=== PATIENT | male | born 1950 | race Caucasian/White ===

== ENCOUNTER 2021-04-25 07:48 | Day surgery (SDC) | payer OTHER, SELFPAY ==
[2021-02-21 15:05] VITALS: BMI 36.4
--- NOTE | 2021-02-24 10:29 | MHC.SHP ---
Pre-Procedural Eval Section A Date of Service: 02/24/21 The patient is an INPATIENT: No Changes since office visit: No Cold of Flu in the past 2 weeks, No New Medical Problems, No Changes in Medication and No Patient answered all questions The History & Physical has been completed within 30 days and I have reviewed it.: Yes Section B Chief Complaint: cataract Allergies: Allergies Allergy/AdvReac Type Severity Reaction Status Date / Time latex Allergy Intermediate Rash Verified 02/21/21 15:01 Plan Diagnosis/Plan: Unchanged I have reviewed the history and physical and performed a pertinent physical examination on my patient. No changes have occurred unless specified.
--- NOTE | 2021-03-17 08:43 | MHC.SHP ---
Pre-Procedural Eval Section A Date of Service: 03/17/21 The patient is an INPATIENT: No Changes since office visit: Yes New Medical Problems; No Cold of Flu in the past 2 weeks, No Changes in Medication and No Patient answered all questions Section B Chief Complaint: cataract Allergies: Allergies Allergy/AdvReac Type Severity Reaction Status Date / Time latex Allergy Intermediate Rash Verified 02/21/21 15:01 Plan I have reviewed the history and physical and performed a pertinent physical examination on my patient. No changes have occurred unless specified.
--- NOTE | 2021-03-17 08:44 | MHC.SHP ---
Pre-Procedural Eval Section A Date of Service: 03/17/21 The patient is an INPATIENT: No Changes since office visit: No Cold of Flu in the past 2 weeks, No New Medical Problems, No Changes in Medication and No Patient answered all questions The History & Physical has been completed within 30 days and I have reviewed it.: Yes Section B Chief Complaint: cataract Allergies: Allergies Allergy/AdvReac Type Severity Reaction Status Date / Time latex Allergy Intermediate Rash Verified 02/21/21 15:01 Plan Diagnosis/Plan: Unchanged I have reviewed the history and physical and performed a pertinent physical examination on my patient. No changes have occurred unless specified.
--- NOTE | 2021-03-18 11:05 | HO.ANESPROP2 ---
HPI - Anesthesia Eval Consult details Narrative: 70yo M for Right Cataract Extraction IOL Insertion No previous cataract on record PCP cleared [facility], [facility] Past Medical History Medical History (Updated 03/18/21 @ 11:06 by Abiola Pugh NP) Arthritis Chronic renal insufficiency Cirrhosis COVID-19 vaccine series completed Elevated cholesterol GERD (gastroesophageal reflux disease) Gout HTN (hypertension) Sleep apnea Subclinical hypothyroidism TIA (transient ischemic attack) Surgical History Surgical History (Updated 02/21/21 @ 15:01 by Carol Ryder RN) H/O colonoscopy History of esophagogastroduodenoscopy (EGD) History of left cataract surgery Status post epidural steroid injection Social History Social History Are you a primary care coordination manager to a significant other at home: No Do you presently have visiting nurse or other home services: Yes ([employer]) Patient Tobacco Use Status: Former Tobacco user Quit Date: age 24 Tobacco use type: Cigarette Use of substances other than those prescribed or required for medical reasons: No Have you been hit, kicked, punched, or otherwise hurt by someone within the past year? If so, by whom?: No Are you DNR?: No Advance Directives Information Provided: Yes (informational brochure mailed) Advance Directives on File: No Recently lost weight without trying: No Eating poorly because of decreased appetite: No Nutrition Risks: No Nutritional Risk Poor oral hygiene: No Meds Allergies Allergy/AdvReac Type Severity Reaction Status Date / Time latex Allergy Intermediate Rash Verified 02/21/21 15:01 Active Medications: Current Medications Povidone Iodine (Povidone Iodine 5 % Ophth Soln 30 Ml Bottle) 1 appl EYE-RIGHT PREOP PRN PRN Reason: Pre-Op Surgical Implant Prophy Home Medications Medication Instructions Recorded Confirmed Last Taken Type allopurinol 100 mg tablet 2 tab PO DAILY 02/21/21 02/21/21 Unknown History aspirin 81 mg tablet,delayed 1 tab PO DAILY 02/21/21 02/21/21 Unknown History release atorvastatin 40 mg tablet 1 tab PO BEDTIME 02/21/21 02/21/21 Unknown History brimonidine 0.15 % eye drops 1 drp OPHTHALMIC (EYE) DAILY 02/21/21 02/21/21 Unknown History celecoxib 100 mg capsule 1 cap PO DAILY 02/21/21 02/21/21 Unknown History cholecalciferol (vitamin D3) 25 1 tab PO DAILY 02/21/21 02/21/21 Unknown History mcg (1,000 unit) tablet (Vitamin D3) cyanocobalamin (vitamin B-12) 1 tab PO DAILY 02/21/21 02/21/21 Unknown History 1,000 mcg tablet furosemide 20 mg tablet 1 tab PO DAILY 02/21/21 02/21/21 Unknown History verapamil 120 mg tablet,extended 1 tab PO DAILY 02/21/21 02/21/21 Unknown History release Exam Exam Date and Time: March 18, 2021 1105 Height,Weight and Vital Signs: Height 6 ft Weight 122.016 kg Assessment and Plan Assessment Anesthesia Assessment: Chart Reviewed
--- NOTE | 2021-03-18 11:08 | MHC.SHP ---
Pre-Procedural Eval Section A Date of Service: 03/21/21 Section B Chief Complaint: cataract Details of Present Illness: vision changes Relevant Family History (Specify if Yes): No Relevant Social History: Tobacco Use (former) Present Medications: see Short Stay Collaborative assessment Medical History: Significant History (See Anesthesia preop consult) History of Previous Operations: Relevant previous surgery/procedure and date(s) (h/o retinal detachment, L cataract ) Allergies: Allergies Allergy/AdvReac Type Severity Reaction Status Date / Time latex Allergy Intermediate Rash Verified 02/21/21 15:01 Plan I have reviewed the history and physical and performed a pertinent physical examination on my patient. No changes have occurred unless specified.
--- NOTE | 2021-04-21 12:56 | MHC.SHP ---
Pre-Procedural Eval Section A Date of Service: 04/21/21 The patient is an INPATIENT: No Changes since office visit: No Cold of Flu in the past 2 weeks, No New Medical Problems, No Changes in Medication and No Patient answered all questions The History & Physical has been completed within 30 days and I have reviewed it.: Yes Section B Chief Complaint: cataract Allergies: Allergies Allergy/AdvReac Type Severity Reaction Status Date / Time latex Allergy Intermediate Rash Verified 02/21/21 15:01 Plan Diagnosis/Plan: Unchanged I have reviewed the history and physical and performed a pertinent physical examination on my patient. No changes have occurred unless specified.
[2021-04-25 08:52] VITALS: BP 177/96; PULSE 74; RESP 18; TEMP 36.6; O2SAT 94
[2021-04-25] MEDS: Tetracaine HCl/PF 0.5% Oph Sol 4 ML DROPS 1 DROP EYE-RIGHT (09:04)
[2021-04-25] MEDS: Tropicamide 1 % Ophth Sol 3 ML BTL 1 DROP EYE-RIGHT ×3 (09:05→09:11)
[2021-04-25] MEDS: Phenylephrine HCL 2.5% Oph SoL 2 ML BOTTLE 1 DROP EYE-RIGHT ×3 (09:07→09:13)
--- NOTE | 2021-04-25 09:09 | P.CONAN_ITS ---
HPI - Anesthesia Eval Consult details Narrative: Right Eye Cataract [facility] Past Medical History Medical History (Updated 03/18/21 @ 11:06 by Abiola Pugh NP) Arthritis Chronic renal insufficiency Cirrhosis COVID-19 vaccine series completed Elevated cholesterol GERD (gastroesophageal reflux disease) Gout HTN (hypertension) Sleep apnea Subclinical hypothyroidism TIA (transient ischemic attack) Family History Family history of problems with anesthesia: No Surgical History Surgical History (Updated 02/21/21 @ 15:01 by Carol Ryder RN) H/O colonoscopy History of esophagogastroduodenoscopy (EGD) History of left cataract surgery Status post epidural steroid injection History of Problems with Anesthesia: No Social History Social History Are you a primary pharmacy care coordinator to a significant other at home: No Do you presently have visiting nurse or other home services: Yes ([employer]) Patient Tobacco Use Status: Former Tobacco user Quit Date: age 24 Tobacco use type: Cigarette Use of substances other than those prescribed or required for medical reasons: No Have you been hit, kicked, punched, or otherwise hurt by someone within the past year? If so, by whom?: No Are you DNR?: No Advance Directives: No Advance Directives Information Provided: Yes (informational brochure mailed) Advance Directives on File: No Recently lost weight without trying: No Eating poorly because of decreased appetite: No Nutrition Risks: No Nutritional Risk Poor oral hygiene: No Meds Allergies Allergy/AdvReac Type Severity Reaction Status Date / Time latex Allergy Intermediate Rash Verified 02/21/21 15:01 Active Medications: Current Medications Lactated Ringer's (Lr) 500 mls @ 50 mls/hr IVCONT .Q10H ANASTACIO Povidone Iodine (Povidone Iodine 5 % Ophth Soln 30 Ml Bottle) 1 appl EYE-RIGHT PREOP PRN PRN Reason: Pre-Op Surgical Implant Prophy Povidone Iodine (Povidone Iodine 5 % Ophth Soln 30 Ml Bottle) 1 appl EYE-RIGHT PREOP PRN PRN Reason: Pre-Op Surgical Implant Prophy Home Medications Medication Instructions Recorded Confirmed Last Taken Type allopurinol 100 mg tablet 2 tab PO DAILY 02/21/21 02/21/21 Unknown History aspirin 81 mg tablet,delayed 1 tab PO DAILY 02/21/21 02/21/21 Unknown History release atorvastatin 40 mg tablet 1 tab PO BEDTIME 02/21/21 02/21/21 Unknown History brimonidine 0.15 % eye drops 1 drp OPHTHALMIC (EYE) DAILY 02/21/21 02/21/21 Unknown History celecoxib 100 mg capsule 1 cap PO DAILY 02/21/21 02/21/21 Unknown History cholecalciferol (vitamin D3) 25 1 tab PO DAILY 02/21/21 02/21/21 Unknown History mcg (1,000 unit) tablet (Vitamin D3) cyanocobalamin (vitamin B-12) 1 tab PO DAILY 02/21/21 02/21/21 Unknown History 1,000 mcg tablet furosemide 20 mg tablet 1 tab PO DAILY 02/21/21 02/21/21 Unknown History verapamil 120 mg tablet,extended 1 tab PO DAILY 02/21/21 02/21/21 04/25/21 History release losartan 25 mg tablet 25 mg PO DAILY 04/14/21 04/14/21 Unknown History Exam Exam Date and Time: April 25, 2021 0909 Height,Weight and Vital Signs: Height 6 ft Weight 122.016 kg Last Vital Signs Temp 97.8 F 04/25/21 08:52 Pulse 74 04/25/21 08:52 Resp 18 04/25/21 08:52 BP 177/96 H 04/25/21 08:52 Pulse Ox 94 04/25/21 08:52 Airway Mallampati Class: III TM Dist: >3cm Neck ROM: Full Loose/Missing/Broken Teeth: Yes (upper front tooth chipped) Heart: [id number] Lungs: cta b/l Assessment and Plan Assessment Anesthesia Assessment: Anesthesia Plan Discussed and Chart Reviewed Final Anesthetic Review Family History of Problems with Anesthesia: No History of Problems with Anesthesia: No NPO: Yes ASA Class: III Final Preanesthetic Review: No Changes in Pt Med Stat, Meds/Allgs Chart Reviewed, Consent Obtained/Reviewed and Anes Risks/Benef Reviewed Patient Risk: Intermediate Procedure Risk: Low Assessment/Block/Sedation in SS: Assess/Block/Sedation-SS Anesthetic Plan Anesthetic Plan: MAC: and Agree w/ Assess. and Plan Disposition: Standard PACU
[2021-04-25] MEDS: Lactated Ringers 500 ML 50 ML IVCONT (09:27)
--- NOTE | 2021-04-25 10:38 | HO.PNOPHT ---
Ophthalmology Procedure Procedure Date of Service: 04/25/21 Ophthalmology Viscoelastic: Angel Sweett Dual Pack Pro Ophthalmology Lenses: TECCHARISSA [id number] (20) Procedure Notes: PREOPERATIVE DIAGNOSIS: Decreased visual acuity right eye secondary to cataract POSTOPERATIVE DIAGNOSIS: Same PROCEDURE: Right cataract extraction with intraocular lens insertion SURGEON: Yunier Barros M.D. ANESTHESIA: Topical/MAC ESTIMATED BLOOD LOSS: None COMPLICATIONS: None After obtaining informed consent, the patient was brought to the operating room suite and placed in the supine position. After adequate sedation per anesthesia, topical drops of Tetracaine were given to the right eye. The eye was then prepped and draped in the usual sterile fashion. The operating room microscope was then positioned over the operative eye and a lid speculum placed. A paracentesis was created. Viscoelastic was then instilled into the anterior chamber. A three plane incision was then created temporally, utilizing a 2.85 mm keratome. Capsulotomy forceps were then utilized to create a circular tear capsulotomy. Hydrodissection and hydrodelineation were carried out until adequate mobilization of the nucleus occurred. Phacoemulsification was then utilized to remove the dense central nucleus followed by removal of the cortical material utilizing the automated aspiration irrigation unit. Viscoelastic was instilled into the posterior capsular bag followed by placement of a posterior chamber intraocular lens without difficulty. The residual Viscoelastic was then removed utilizing the automated IA machine. The wound was checked and found to be watertight. The patient tolerated the procedure well and the lid speculum was removed. Intracameral injection of Vigamox 0.1 mL followed by a subtenon injection of Kenalog-40 0.2 mL were administered. The patient will be seen in the a.m.
[2021-04-25 11:10] VITALS: BP 134/78; PULSE 64; RESP 18; TEMP 36.2; O2SAT 97
== END 2021-04-25 11:13 | disposition home or self-care (01) ==
PROVIDERS: PCP Internal Medicine; Visit Provider Ophthalmology
PROC: (CPT 66985; principal; 2021-04-25 10:20)
DX: H25.11 Age-related nuclear cataract, right eye (principal); H54.7 Unspecified visual loss; H40.012 Open angle with borderline findings, low risk, left eye; Z96.1 Presence of intraocular lens; I10 Essential (primary) hypertension; K74.60 Unspecified cirrhosis of liver; E02 Subclinical iodine-deficiency hypothyroidism; E78.00 Pure hypercholesterolemia, unspecified; M10.9 Gout, unspecified; G47.33 Obstructive sleep apnea (adult) (pediatric); Z79.82 Long term (current) use of aspirin; Z79.899 Other long term (current) drug therapy; Z91.040 Latex allergy status; Z87.891 Personal history of nicotine dependence
CPT/HCPCS: 66984; J2250; J3010; J3300; V2632